=== PATIENT | male | born 1985 | race Caucasian/White ===

== ENCOUNTER → 2018-05-03 | Outpatient (CLI) | payer OTHER ==
[~2018-05-03] MED LIST: METHACHOLINE KIT (J7674) INH ONE
--- NOTE | 2018-05-03 15:39 | PFTRPT ---
Height: 69.00 Inches Weight: 215.00 Lbs BSA: 2.13 Diagnosis: R06.02 DATE OF PROCEDURE: 05/03/2018 ORDERED BY: Dr. Rousseau Spirometry: Study of excellent technical quality. Forced vital capacity normal. FEV1 in proportion. Obstructive index is, therefore, normal. Flow Volume Loop: Expiratory limb of the flow volume loop is normal. Lung Volumes: Total lung capacity is normal. Residual volume is generally in proportion. Diffusing Capacity: Diffusing capacity normal. Hemoglobin: Hemoglobin acceptable at 15.6. Airway Mechanics: Airway resistance and conductance are normal. IMPRESSION: Normal study. MTDD
--- NOTE | 2018-05-03 15:39 | PFTRPT ---
Height: 69.00 Inches Weight: 215.00 Lbs BSA: 2.13 Diagnosis: R05 DATE OF PROCEDURE: 05/03/2018 ORDERED BY: Dr. Rousseau INTERPRETATION: Study of excellent technical quality. Under protocol, methacholine was administered. At a dose of 2.5 mg or 13.875 CDUs, a 25% decline in the FEV1 was noted. PC of 0.96 is significant. Flow rates did return to baseline post bronchodilator administration. IMPRESSION: Positive methacholine challenge study. MTDD
== END ==
LOC: M CARPUL 10:14
PROVIDERS: ATTEND Internal Medicine Pulmonary Disease
DX: R05 Cough (principal); R06.02 Shortness of breath